=== PATIENT | male | born 1995 | race Hispanic/Latino ===

== ENCOUNTER 2018-10-04 17:38 | Emergency (ER) | payer OTHER ==
[2018-10-04 17:46] VITALS: O2SAT 98
--- NOTE | 2018-10-04 19:03 | ED PDOC ---
HPI: Back Time Seen by Provider: 10/04/18 17:51 Chief Complaint (Nursing): Back Pain Chief Complaint (Provider): Flank/Rib Pain History Per: Patient History/Exam Limitations: no limitations Additional Complaint(s): Patient is a 23 year old male who presents to the emergency department for evaluation of right sided back/flank pain. Patient was playing lacrosse at [employer] when he was cross checked to his right side. He states at first he was unable to catch his breath and had 10/10 pain, prompting ED visit. Since present in the ED, patient's pain has improved and is only bothersome when he moves or takes deep breaths. Currently the pain is rated as a 4/10 by the patient. He denies taking any medication prior to arrival and denies any other medical complaints. Otherwise: (-)abdominal pain (-) hematuria (-) N/V/D (-) headache (- ) dizziness (-) incontinence (-) paresthesias, (-) weakness, (-) acute bowel or bladder dysfunction, (-) fever. PMD: In [place] Past Medical History Reviewed: Historical Data, Nursing Documentation, Vital Signs Vital Signs: Last Vital Signs Temp 98.0 F 10/04/18 17:44 Pulse 78 10/04/18 17:44 Resp 16 10/04/18 17:44 BP 142/79 10/04/18 17:44 Pulse Ox 98 10/04/18 17:44 - Medical History PMH: No Chronic Diseases - Surgical History Other surgeries: arthroscopy of right shoulder - Family History Family History: States: Unknown Family Hx - Social History Current smoker - smoking cessation education provided: No Ex-Smoker (has not smoked in the last 12 months): No Alcohol: Social Drugs: Denies - Home Medications Home Medications: Ambulatory Orders Medication Instructions Recorded Ibuprofen [Motrin Tab] 800 mg PO Q8 PRN #21 tab 10/04/18 - Allergies Allergies/Adverse Reactions: Allergies Allergy/AdvReac Type Severity Reaction Status Date / Time No Known Allergies Allergy Verified 10/04/18 17:44 Review of Systems ROS Statement: Except As Marked, All Systems Reviewed And Found Negative Musculoskeletal: Positive for: Back Pain, Other (rib pain) Neurological: Negative for: Weakness Physical Exam - Reviewed Nursing Documentation Reviewed: Yes Vital Signs Reviewed: Yes - Physical Exam Comments: GENERAL APPEARANCE: Patient is awake, alert, oriented x 3, in no acute distress. Resting comfortably, interacting with financial wellness coach at bedside. SKIN: Warm, dry; (-) cyanosis. EYES: (-) conjunctival injection ENMT: Mucous membranes moist. Airway patent, (-) stridor. NECK: Supple, FROM CHEST AND RESPIRATORY: (+) tenderness to lateral and anterior right lower ribs; (-) ecchymosis, (-) edema, (-) swelling, (-) palpable deformity(-) rales, (-) rhonchi, (-) wheezes; breath sounds equal bilaterally. Respirations even and nonlabored. HEART AND CARDIOVASCULAR: (-) irregularity ABDOMEN AND GI: Soft; (-) tenderness (-) ecchymosis (-) distention (-) guarding (-) rebound (-) palpable mass (-) CVA tenderness BACK: (-) direct bony tenderness, (-) deformity. Straight leg raising (-) bilaterally. EXTREMITIES: (-) deformity. Distal pulses good bilaterally. NEURO AND PSYCH: Mental status as above. Intact sensation bilaterally; normal strength in extension of the knees, plantar and dorsiflexion of the toes. Gait: steady. Speech: clear. (-) facial asymmetry. Normal cognition. - ECG O2 Sat by Pulse Oximetry: 98 (RA) Pulse Ox Interpretation: Normal Medical Decision Making Medical Decision Making: Time: 1829 Impression: acute rib pain, rule out rib fracture Plan: --Right ribs and Chest xray --Tylenol 650 mg PO --Flexeril 10 mg PO (not driving home) --Urinalysis --Re-evaluation 1999 RIB/Chest XR: no fracture, no acute pathology as read by Bruno SERRANO. Patient notified official radiology reading is still pending and he would be notified of any discrepancies via phone. [facility] report: EXAM: CR right Ribs and PA Chest, 5 View. CLINICAL HISTORY: R/o rib fx COMPARISON: None provided. FINDINGS: LUNGS: The lungs appear essentially clear. PLEURAL SPACES: No pneumothorax evident. No pleural effusions. HEART: Heart size is within normal limits. MEDIASTINUM: The mediastinal silhouette is within normal limits. BONES: No acute displaced right rib fracture is evident. IMPRESSION: No evidence of acute rib fracture. No pneumothorax seen. No acute cardiopulmonary pathology is evident. Electronically signed on Oct 04, 2018 9:15:09 PM EDT by: Lucas Caruso M.D., M.B.A., Certified By [employer] Trained MRI and CT Specialist [id number] U/A reviewed and grossly unremarkable. No hematuria. On re-evaluation, patient reports improvement of symptoms. On exam, patient remains AAOx3, in no acute distress. Lungs clear to auscultation, cardiac RRR, abdomen soft, non-tender. Vitals stable. Lab/Diagnostic results d/w the patient in great detail. Diagnosis of rib contusion d/w the patient. Based on history, exam and diagnostic results, plan will be for outpatient follow up with clinic. Patient instructed to follow-up with pmd / referral provided / the clinic in 1- 2 days without fail. Advised to take medication as prescribed. Return to the emergency room at any time for any new or worsening symptoms. Patient states he fully agrees with and understands discharge instructions. States that he agrees with the plan and disposition. Verbalized and repeated discharge instructions and plan. I have given the patient opportunity to ask any additional questions. Scribe Attestation: Documented by Rob Bradford acting as a scribe for Fartun Castro Provider Scribe Attestation: All medical record entries made by the Scribe were at my direction and personally dictated by me. I have reviewed the chart and agree that the record accurately reflects my personal performance of the history, physical exam, medical decision making, and the department course for this patient. I have also personally directed, reviewed, and agree with the discharge instructions and disposition. Disposition - Clinical Impression Clinical Impression: Contusion of rib - Patient ED Disposition Is Patient to be Admitted: No Counseled Patient/Family Regarding: Studies Performed, Diagnosis, Need For Followup, Rx Given - Disposition Referrals: [facility] [place] [Outside] Disposition: Routine/Home Disposition Time: 21:10 Condition: STABLE Additional Instructions: The emergency medical care you received today was directed at your acute symptoms. If you were prescribed any medication, please fill it and take as directed. It may take several days for your symptoms to resolve. Return to the Emergency Department if your symptoms worsen, do not improve, or if you have any other problems. Please contact your doctor in 2 days for re-evaluation and follow up / or call one of the physicians/clinics you have been referred to that are listed on the Patient Visit Information form that is included in your discharge packet. Bring any paperwork you were given at discharge with you along with any medications you are taking to your follow up visit. Our treatment cannot replace ongoing medical care by a primary care provider (PCP) outside of the emergency department. Prescriptions: Ibuprofen [Motrin Tab] 800 mg PO Q8 PRN #21 tab PRN Reason: Pain, Moderate (4-7) Instructions: Contusion (DC), Bruised Rib (DC) Forms: [employer] (Kiswahili), [facility] ED School/Work Excuse Print Language: FAROESE - POA Present On Arrival: None Results - Lab Results Lab Results: 10/04/18 19:40 Urine Color Yellow Urine Clarity Slighty-cloudy Urine pH 6.0 Ur Specific [place] 1.027 Urine Protein 100 Urine Glucose (UA) Neg Urine Ketones Negative Urine Blood Negative Urine Nitrate Negative Urine Bilirubin Negative Urine Urobilinogen 0.2-1.0 Ur Leukocyte Esterase Neg Urine RBC (Auto) < 1 Urine Microscopic WBC 1 Ur Squamous Epith Cells < 1 Hyaline Casts 0-2
[2018-10-04 20:33] LABS: SQUAMOUS EPITHIAL < 1 /hpf (0-5); URINE BILIRUBIN NEGATIVE (NEGATIVE); URINE BLOOD NEGATIVE (NEGATIVE); URINE CLARITY SLIGHTY-CLOUDY (Clear); URINE COLOR YELLOW (YELLOW); URINE GLUCOSE (UA) NEG (NEGATIVE); URINE HYALINE CAST 0-2 /hpf (0-2); URINE LEUKOCYTE ESTERASE NEG Leu/uL (Negative); URINE PROTEIN 100 mg/dL (NEGATIVE); URINE UROBILINOGEN 0.2-1.0 mg/dL (0.2-1.0)
[2018-10-04 21:34] VITALS: BP 128/76; PULSE 70; RESP 18; TEMP 98.2
--- NOTE | 2018-10-05 14:30 | RAD ---
Date of service: 10/04/2018 PROCEDURE: Radiographs of the Chest and Right Ribs. HISTORY: r/o fracture, lacrosse injury COMPARISON: None available. TECHNIQUE: Frontal radiograph of the chest and multiple oblique radiographs of the right ribs were obtained. 4 views obtained. FINDINGS: RIGHT RIBS: No fracture or focal lesion visualized. LUNGS: Clear. PLEURA: No pneumothorax or pleural fluid. CARDIOVASCULAR: Normal cardiac size. No pulmonary vascular congestion. No aortic atherosclerotic calcification present OTHER FINDINGS: None. IMPRESSION: Unremarkable radiographs of the chest and right ribs. No right rib fracture.
== END 2018-10-04 21:15 | disposition home or self-care (01) ==
LOC: H.ER 17:38
DX: S20.219A Contusion of unspecified front wall of thorax, initial encounter (principal); W22.8XXA Striking against or struck by other objects, initial encounter; Y92.39 Other specified sports and athletic area as the place of occurrence of the external cause